=== PATIENT | male | born 1945 | race Caucasian/White ===

== ENCOUNTER → 2022-04-30 | Outpatient (CLI) | payer BC, SELFPAY ==
--- NOTE | 2022-04-30 12:43 | RAD_ITS ---
STUDY: X-RAY CHEST REASON FOR EXAM: Male, 76 years old. OBSTRUCTIVE SLEEP APNEA TECHNIQUE: Frontal and lateral views of the chest. COMPARISON: None. FINDINGS: There are few left basilar streaky opacities. There is an electrical device projecting over the right hemithorax with a lead extending into the right neck. Normal size heart. Normal mediastinum and milly. Normal visualized pulmonary arteries. Normal visualized aortic arch and descending thoracic aorta. There are diffuse degenerative changes of the visualized thoracic spine. Normal visualized ribs, clavicles, and shoulders. There are surgical clips within the right upper quadrant. RAD/Chest PA and Lateral IMPRESSION: Minimal left basilar atelectasis and/or scarring. Electronically Signed: Gabriela Joyce MD at 14:43 EDT ,
== END | disposition home or self-care (01) ==
LOC: MTRAD 12:39
DX: G47.33 Obstructive sleep apnea (adult) (pediatric) (principal)
CPT/HCPCS: 71046